=== PATIENT | female | born 2005 | race Two or more races ===

== ENCOUNTER 2025-01-02 22:32 | Emergency (ER) | payer MEDICAID, OTHER ==
[~2025-01-02] VITALS: Ht 157.5 cm; Wt 48.0 kg
[2025-01-02 22:42] VITALS: BP 119/76; PULSE 78; RESP 18; TEMP 97.8; O2SAT 97
--- NOTE | 2025-01-02 23:12 | ED.PDOC ---
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 Patient is a , felix roximately 19 weeks . States for the past 2 days, she has not felt her baby move or kick. States 3 days ago she felt a sharp right lower quadrant pain, and since then she noted that her baby slowed down in her movements, eventually to the point of not moving at all. She denies any abdominal cramping or vaginal bleeding Chief Complaint: Abdominal Pain Time Seen by MD: 23:12 Reviewed Notes: Nurses Notes Allergies: Coded Allergies: NO KNOWN ALLERGIES (Unverified , 01/02/25) Information Source: Patient Mode of Arrival: Ambulatory Past Medical History PAST MEDICAL HISTORY: Denies Surgical History: Denies all surgeries COMMODITY SPECIALIST History: Denies all COMMODITY SPECIALIST Hx 1 Para 0 LMP August 23, 2024 Family History Family History: Reviewed,noncontributory to illness Social History Smoker: Non-Smoker Alcohol: Denies ETOH Use Drugs: Denies Drug Use Lives In: Home Constitutional: denies: chills, diaphoresis, fatigue, fever, malaise, sweats, weakness, others EENTM: denies: blurred vision, double vision, ear bleeding, ear discharge, ear drainage, ear pain, ear ringing, eye pain, eye redness, hearing loss, mouth pain, mouth swelling, nasal discharge, nose bleeding, nose congestion, nose pain, photophobia, tearing, throat pain, throat swelling, voice changes, others Respiratory: denies: cough, hemoptysis, orthopnea, SOB at rest, shortness of breath, SOB with excertion, stridor, wheezing, others Cardiovascular: denies: chest pain, dizzy spells, diaphoresis, Dyspnea on exertion, edema, irregular heart beat, left arm pain, lightheadedness, palpitations, PND, syncope, others Gastrointestinal: denies: abdomen distended, abdominal pain, blood streaked bowels, constipated, diarrhea, dysphagia, difficulty swallowing, hematemesis, melena, nausea, poor appetite, poor fluid intake, rectal bleeding, rectal pain, vomiting, others Genitourinary: denies: abnormal vagina bleeding, burning, dyspareunia, dysuria, flank pain, frequency, hematuria, incontinence, pain, , vagina discharge, urgency, others Neurological: denies: dizziness, fainting, headache, left sided numbness, left sided weakness, numbness, paresthesia, pre-existing deficit, right sided numbness, right sided weakness, seizure, speech problems, tingling, tremors, weakness, others Musculoskeletal: denies: back pain, gout, joint pain, joint swelling, muscle pain, muscle stiffness, neck pain, others Integumetry: denies: bruises, change in color, change in hair/nails, dryness, laceration, lesions, lumps, rash, wounds, others Allergic/Immunocompromised: denies: Difficulty Healing, Frequent Infections, Hives, Itching, others Hematologic/Lymphatic: denies: anemia, blood clots, easy bleeding, easy bruising, swollen glands, others Endocrine: denies: excessive hunger, excessive sweating, excessive thirst, excessive urination, flushing, intolerance to cold, intolerance to heat, unexplained weight gain, unexplained weight loss, others Psychiatric: denies: anxiety, bipolar disorder, depression, hopeless, panic disorder, schizophrenia, sleepless, suicidal, others Physical Exam General Appearance: No Apparent Distress, Normal HEENT: Normal ENT Inspection, Pharynx Normal, TMs Normal Neck: Full Range of Motion, Non-Tender, Normal, Normal Inspection Respiratory: Chest Non-Tender, Lungs Clear, No Accessory Muscle Use, No Respiratory Distress, Normal Breath Sounds Cardiovascular: No Edema, No JVD, No Murmur, No Gallop, Normal Peripheral Pulses, Regular Rate/Rhythm Breast Exam: Deferred Gastrointestinal: No Organomegaly, Non Tender, No Pulsatile Mass, Normal Bowel Sounds, Soft Genitalia: Deferred Pelvic: Deferred Rectal: Deferred Extremities: No calf tenderness, Normal capillary refill, Normal inspection, Normal range of motion, Non-tender, No pedal edema Musculoskeletal : Apperance: Normal 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 Was a procedure done?: No Differential Diagnosis (COMMODITY SPECIALIST) Vaginal Bleeding: - Missed, - Threatened, UTI X-Ray, Labs, Meds, VS Vital Signs Date Time Temp Pulse Resp B/P (MAP) Pulse Ox O2 Delivery O2 Flow Rate FiO2 01/02/25 22:42 97.8 78 18 119/76 97 97.8 Lab Test 01/02/25 23:35 01/02/25 23:21 Range/Units Urine Color Light-yellow Yellow Urine Clarity Clear Clear Urine pH 7.5 5.0-9.0 Urine Specific [place] 1.014 1.001-1.035 Urine Protein Negative Negative Urine Ketones Negative Negative Urine Blood Negative Negative /uL Urine Nitrite Negative Negative Urine Bilirubin Negative Negative Urine Urobilinogen Normal Negative mg/dL Urine Leukocyte Esterase 2+ Negative /uL Urine RBC None seen 0 - 4 /hpf Urine Microscopic WBC 7 H 0-5 /HPF Urine Squamous Epithelial Cells Few <5 /hpf Urine Bacteria Few H None Seen /hpf Urine Mucus Few None Seen Urine Glucose Normal Normal mg/dL Urine Test Positive Negative White Blood Count 9.9 4.4-10.8 10^3/uL Red Blood Count 3.61 L 4.0-5.20 10^6/uL Hemoglobin 11.1 L 12.2-16.2 g/dL Hematocrit 31.2 L 36.0-46.0 % Mean Corpuscular Volume 86.5 80.0-100.0 fL Mean Corpuscular Hemoglobin 30.7 28.0-32.0 pg Mean Corpuscular Hemoglobin Concent 35.5 32.0-36.0 g/dL Red Cell Distribution Width 13.4 11.8-14.3 % Platelet Count 270 140-450 10^3/uL Mean Platelet Volume 8.3 6.9-10.8 fL Neutrophils (%) (Auto) 62.6 37.0-80.0 % Lymphocytes (%) (Auto) 28.6 10.0-50.0 % Monocytes (%) (Auto) 5.2 0.0-12.0 % Eosinophils (%) (Auto) 3.2 0.0-7.0 % Basophils (%) (Auto) 0.4 0.0-2.0 % Neutrophils # (Auto) 6.2 1.6-8.6 10 ^3/uL Lymphocytes # (Auto) 2.8 0.4-5.4 10 ^3/uL Monocytes # (Auto) 0.5 0-1.3 10 ^3/uL Eosinophils # (Auto) 0.3 0-0.8 10 ^3/uL Basophils # (Auto) 0 0-0.2 10 ^3/uL Nucleated Red Blood Cells 0.0 % Sodium Level 137 136-145 mmol/L Potassium Level 3.6 3.5-5.1 mmol/L Chloride Level 104 98-107 mmol/L Carbon Dioxide Level 24 20-31 mmol/L Anion Gap 9 5-15 Blood Urea Nitrogen < 5 L 9-23 mg/dL Creatinine 0.50 L 0.550-1.02 mg/dL Glomerular Filtration Rate Calc 138 >90 mL/min BUN/Creatinine Ratio 10.0 10.0-20.0 Serum Glucose 80 74-106 mg/dL Calcium Level 9.1 8.7-10.4 mg/dL Total Bilirubin 0.3 0.2-1.0 mg/dL Aspartate Amino Transferase (AST) 28 13-40 U/L Alanine Aminotransferase (ALT) 25 7-40 U/L Alkaline Phosphatase 81 46-116 U/L Total Protein 6.8 5.7-8.2 g/dL Albumin 4.2 3.2-4.8 g/dL Lipase 46 12-53 U/L EXAM: US OB ULTRASOUND COMP GTR 14 WKS HISTORY: 19 wks pain TECHNIQUE: Multiple real-time grayscale images of the gravid uterus with duplex Doppler color flow and M-mode spectral analysis. COMPARISON: None FINDINGS: IUP single live fetus at 19 weeks 1 day average ultrasound age (AUA) based on composite averages of the BPD, head circumference, abdominal circumference and femur length Age based on (early ultrasound) : 19 weeks 1 day MEASUREMENTS: BPD: 4.5 cm GA: 19 w 4 d HC: 16.1 cm GA: 18 w 6 d AC: 18.8 cm GA: 19 w 2 d FL: 0.9 cm GA: 18 w 5 d Estimated weight 270.28+/-40.54 grams; 0 lbs 10 oz +/-1 oz. heart rate 139 beats per minute HAYLEY is adequate. MVP: 4.8 cm. ANATOMIC SURVEY: Complete anatomic survey was not performed at this time. Cephalic Presentation Anterior grade 0 placenta without previa or abruption Cervix closed measuring 4.0 cm IMPRESSION: 1. IUP single live fetus with positive heart tones and movement at 19 weeks 1 day AUA corresponding to an DORA of 05/28/2025. Time of 1ST Reevaluation: 23:07 Reevaluation 1ST: Unchanged Patient Education/Counseling: Diagnosis, Treatment Family Education/Counseling: Diagnosis, Treatment Departure 1 Departure Time of Disposition: 01:00 Impression: Primary Impression: 19 weeks gestation of Disposition: HOME / SELF CARE / HOMELESS Condition: Stable Discharged With: Self Critical Care Note Critical Care Time?: No Stability Stability form required: No Heart Score Heart Score: Heart Score Response (Comments) Value History N/A 0 EKG N/A 0 Age N/A 0 Risk Factors N/A 0 Troponin N/A 0 Total 0 I personally scribed for DIOGENES VEGA MD ([email or web address]) on 01/02/25 at 23:12. Electronically submitted by Derek Valdez ([email or web address]). I personally scribed for DIOGENES VEGA MD ([email or web address]) on 01/03/25 at 00:17. Electronically submitted by Derek Valdez ([email or web address]). DIOGENES VEGA MD Jan 02, 2025 23:12
--- NOTE | 2025-01-02 23:46 | DVH ---
EXAM: US OB ULTRASOUND COMP GTR 14 WKS HISTORY: 19 wks pain TECHNIQUE: Multiple real-time grayscale images of the gravid uterus with duplex Doppler color flow an d M-mode spectral analysis. COMPARISON: None FINDINGS: IUP single live fetus at 19 weeks 1 day average ultrasound age (AUA) based on composite averages of t he BPD, head circumference, abdominal circumference and femur length Age based on (early ultrasound) : 19 weeks 1 day MEASUREMENTS: BPD: 4.5 cm GA: 19 w 4 d HC: 16.1 cm GA: 18 w 6 d AC: 18.8 cm GA: 19 w 2 d FL: 0.9 cm GA: 18 w 5 d Estimated weight 270.28+/-40.54 grams; 0 lbs 10 oz +/-1 oz. heart rate 139 beats per minute HAYLEY is adequate. MVP: 4.8 cm. ANATOMIC SURVEY: Complete anatomic survey was not performed at this time. Cephalic Presentation Anterior grade 0 placenta without previa or abruption Cervix closed measuring 4.0 cm IMPRESSION: 1. IUP single live fetus with positive heart tones and movement at 19 weeks 1 day AUA correspon ding to an DORA of 05/28/2025.
[2025-01-02 23:47] LABS: Hematocrit 31.2 % (36.0-46.0); Hemoglobin 11.1 g/dL (12.2-16.2); Mean Corpuscular Hemoglobin 30.7 pg (28.0-32.0); Mean Corpuscular Volume 86.5 fL (80.0-100.0); Nucleated Red Blood Cells % 0.0 %
[2025-01-02 23:53] LABS: Urine Protein, UAD Negative (Negative)
[2025-01-02 23:55] LABS: Alanine Aminotransferase 25 U/L (7-40); Albumin 4.2 g/dL (3.2-4.8); Alkaline Phosphatase 81 U/L (46-116); Calcium 9.1 mg/dL (8.7-10.4); Carbon Dioxide 24 mmol/L (20-31); Glucose 80 mg/dL (74-106); Lipase 46 U/L (12-53); Total Protein 6.8 g/dL (5.7-8.2)
[2025-01-02 23:57] LABS: BUN/Creatinine Ratio 10.0 (10.0-20.0); Bilirubin, Total 0.3 mg/dL (0.2-1.0); Blood Urea Nitrogen < 5 mg/dL (9-23)
[2025-01-03] LABS: Anion Gap 9 (5-15); Chloride 104 mmol/L (98-107); Potassium 3.6 mmol/L (3.5-5.1); Sodium 137 mmol/L (136-145)
[2025-01-03] MEDS: cefTRIAXone W LIDOCAINE 500 MG IM IM ONE (03:00)
== END 2025-01-03 04:19 | disposition home or self-care (01) ==
LOC: ER 22:32
DX: O26.892 Other specified pregnancy related conditions, second trimester (principal); R10.31 Right lower quadrant pain; Z3A.19 19 weeks gestation of pregnancy; Z79.899 Other long term (current) drug therapy
CPT/HCPCS: 36415; 76805; 80053; 81001; 81025; 83690; 85025; J0696